=== PATIENT | female | born 1970 | race Caucasian/White ===

== ENCOUNTER 2017-01-07 15:15 | Emergency (ER) | payer BC ==
[2017-01-07 15:31] VITALS: BP 139/67
--- NOTE | 2017-01-07 16:20 | UC ---
HPI Wound/Suture Re-check - HPI Summary HPI Summary: THREE WEEKS AGO, CAT SCRATCHED LEFT ANKLE, WOUND IS NOT HEALING WELL, DESPITE BEING ON LEVOQUIN FOR FIVE DAYS. HAS HAD COUGH AND CONGESTION AND FEVER FOR THREE DAYS - History Of Current Complaint Chief Complaint: UCSkin Stated Complaint: COUGH/LT ANKLE SKIN COMPLAINT Time Seen by Provider: 01/07/17 15:45 Hx Obtained From: Patient Onset/Duration: Gradual Onset, Lasting Weeks, Still Present Severity: Moderate Pain Intensity: 7 Pain Scale Used: 0-10 Numeric - Allergies/Home Medications Allergies/Adverse Reactions: Allergies Allergy/AdvReac Type Severity Reaction Status Date / Time Erythromycin Allergy Swelling Verified 01/07/17 15:31 Of Face,Lips,& Throat Penicillins [PCN] Allergy Swelling Verified 01/07/17 15:31 Of Face,Lips,& Throat Pneumococcal Vaccine Allergy Swelling Verified 01/07/17 15:31 Of Face,Lips,& Throat Home Medications: Home Medications Furosemide TAB* [Lasix TAB*] 10 mg PO DAILY 01/07/17 [History Confirmed 01/07/17 ] Levofloxacin TAB* [Levaquin TAB*] 250 mg PO DAILY 01/07/17 [History Confirmed ] PMH/Surg Hx/FS Hx/Imm Hx Previously Healthy: Yes Endocrine History Of: Reports: Diabetes Denies: Thyroid Disease Cardiovascular History Of: Reports: Cardiac Disorders - angina, Hypertension - controlled HTN Respiratory History Of: Denies: COPD, Asthma GI/ History Of: Denies: Ulcer - Surgical History Surgical History: Yes Surgery Procedure, Year, and Place: Heart Catherizaion - Family History Known Family History: Negative: Respiratory Disease - Social History Occupation: Employed Full-time Lives: With Family Alcohol Use: Occasionally Substance Use Type: None Smoking Status (MU): Never Smoked Tobacco Review of Systems Constitutional: Fever Skin: Other - HEALING LACERATION LEFT ANKLE WITH SCALING OF SCAR TISSUE Eyes: Negative ENT: Nasal Discharge Respiratory: Cough Cardiovascular: Negative Gastrointestinal: Negative Genitourinary: Negative Motor: Negative Neurovascular: Negative Musculoskeletal: Negative Neurological: Negative Psychological: Negative All Other Systems Reviewed And Are Negative: Yes Physical Exam Triage Information Reviewed: Yes Appearance: No Pain Distress, Well-Nourished, Ill-Appearing - MILD Vital Signs: Initial Vital Signs Temp 100.6 F 01/07/17 15:27 Pulse 96 01/07/17 15:27 Resp 14 01/07/17 15:27 BP 139/67 01/07/17 15:27 Pulse Ox 99 01/07/17 15:27 Vital Signs Reviewed: Yes Eye Exam: Normal ENT: Positive: Hearing grossly normal, Pharynx normal, Nasal congestion, TMs normal Dental Exam: Normal Neck exam: Normal Neck: Positive: Supple, Nontender, No Lymphadenopathy. Negative: Nuchal Rigidity, Tenderness @, Enlarged Nodes @ Respiratory Exam: Other - COUGH Respiratory: Positive: Chest non-tender, Lungs clear, Normal breath sounds, No respiratory distress, No accessory muscle use Cardiovascular Exam: Normal Cardiovascular: Positive: RRR, No Murmur, Pulses Normal Abdominal Exam: Normal Abdomen Description: Positive: Nontender, No Organomegaly Musculoskeletal Exam: Normal Musculoskeletal: Positive: Strength Intact, ROM Intact Neurological Exam: Normal Psychological Exam: Normal Skin: Positive: Other - HEALING 3CM LACERATION LEFT ANKLE WITH SCALING OF SCAR TISSUE Course/Dx - Differential Dx - Laceration/Wound Differential Diagnoses: Abscess, Cellulitis, Other - CAT SCRATCH DISEASE Provider Diagnoses: URI. CELLULITIS Discharge - Discharge Plan Condition: Stable Disposition: HOME Prescriptions: DOXYcycline CAP(*) [DOXYcycline 100MG CAP(*)] 100 mg PO BID #20 cap Patient Education Materials: Cellulitis (ED), Upper Respiratory Infection (ED) , Cat Scratch Disease (ED) Referrals: Fredis Silva MD [Primary Care Provider] -
== END 2017-01-07 16:03 | disposition home or self-care (01) ==
LOC: UCCORT 15:15
DX: S91.012A Laceration without foreign body, left ankle, initial encounter (principal); L03.116 Cellulitis of left lower limb; W55.03XA Scratched by cat, initial encounter; Y93.9 Activity, unspecified; Y92.9 Unspecified place or not applicable; J06.9 Acute upper respiratory infection, unspecified; E11.9 Type 2 diabetes mellitus without complications; I20.9 Angina pectoris, unspecified; I10 Essential (primary) hypertension; Z88.1 Allergy status to other antibiotic agents; Z88.0 Allergy status to penicillin; Z88.7 Allergy status to serum and vaccine
CPT/HCPCS: 87070; 87077; 87186; 87205; 87640; 87641; 99212; G0463

== ENCOUNTER → 2017-10-24 08:36 | Day surgery (SDC) | payer BC ==
[~2017-10-24 08:36] MED LIST: Acetaminophen TAB* 325 MG ONE; Acetaminophen TAB* 325 MG PO ONE; Buffered Lidocaine 0.9% SYRIN* 5 ML/SYR SYRINGE INTRADERM ONE; Buffered Lidocaine 0.9% SYRIN* 5 ML/SYR SYRINGE ONE; Bupivacaine 0.5% SDV PF* 10-30ML VIAL ONE; Clindamycin 900 MG IVPREMIX(* 900 MG/50 ML SDV IV ONE; EPHEDrine (Pressors)* 50 MG/ML VIAL ONE; Famotidine IV* 10 MG/ML 2 ML (20 mg) IV ONE; Famotidine IV* 10 MG/ML 2 ML (20 mg) ONE; HYDROmorphone INJ* 1 MG/ML CARPUJECT SYRINGE IV PRN; Lidocaine 1% INJ* 10 MG/ML 30 ML SDV ONE; Lidocaine 2% PF * 5 ML VIAL ONE; Midazolam* 1 MG/ML 2 ML VIAL (2 MG) ONE; Naloxone* 0.4 MG/ML 1 ML VIAL IV PRN; Ondansetron INJ* 2 MG/ML VIAL IV PRN; Propofol* 500 MG/50 ML BTL ONE; Sodium Citrate/Citric Acid* 15 ML UDC ONE; Sodium Citrate/Citric Acid* 15 ML UDC PO ONE; fentaNYL* 50 MCG/ML 2 ML VIAL (100 MCG VIAL) IV PRN; fentaNYL* 50 MCG/ML 2 ML VIAL (100 MCG VIAL) ONE; oxyCODONE TAB* 5 MG TAB ONE; oxyCODONE TAB* 5 MG TAB PO PRN
[2017-10-24 14:08] VITALS: BP 162/64
--- NOTE | 2017-10-25 10:09 | OP ---
DATE OF OPERATION: 10/24/17 - [facility] DATE OF : 68 SURGEON: Elías Lam MD CHEF'S ASSISTANT: Yanique Alejandro PA-C ANESTHESIOLOGIST: Marilyn Jeffrey MD ANESTHESIA: General PRE-OP DIAGNOSIS: Necrotic infected left distal toe. POST-OP DIAGNOSIS: Necrotic infected left distal toe. OPERATIVE PROCEDURE: Revision of partial amputation, left great toe. DESCRIPTION OF PROCEDURE: The patient was taken to the operating room where a transverse elliptical incision made over the proximal aspect of the IP joint of the left great toe. We incised down to the dorsal aspect of the proximal phalangeal cortex and dissected proximally transecting the proximal phalanx with a microsagittal saw. The skin flaps were trimmed back to good viable tissue and closed dorsal to plantar using 2-0 Vicryl sutures and 2-0 Prolene. Hemostasis obtained before the closure as well as thorough irrigation. The patient tolerated both well. [id number] #: [id number] MTDD
== END | disposition home or self-care (01) ==
LOC: OR 08:36
PROVIDERS: ATTEND Orthopaedic Surgery
DX: M86.172 Other acute osteomyelitis, left ankle and foot (principal); E11.52 Type 2 diabetes mellitus with diabetic peripheral angiopathy with gangrene; I96 Gangrene, not elsewhere classified; Z79.4 Long term (current) use of insulin; F41.8 Other specified anxiety disorders; I10 Essential (primary) hypertension; E78.00 Pure hypercholesterolemia, unspecified; I25.10 Atherosclerotic heart disease of native coronary artery without angina pectoris; Z79.01 Long term (current) use of anticoagulants; R06.02 Shortness of breath; E78.5 Hyperlipidemia, unspecified
CPT/HCPCS: 88305; 88311; A9270-GY; J2250; J2704; J3010